=== PATIENT | male | born 1975 | race Caucasian/White ===

== ENCOUNTER → 2020-07-04 | Outpatient (CLI) | payer MEDICAID, MEDICARE ==
[~2020-07-04] MED LIST: CYCL10TA45 GT; HYDR-2890 PO; HYDR-34 PO; VNL75T PO
--- NOTE | 2020-07-04 12:58 | Diagnostic Imaging Report ---
EXAMINATION: CT Chest without contrast. TECHNIQUE: Multiple contiguous axial images were obtained through the chest without the use of intravenous contrast. All CT scans use one or more of the following dose optimizing techniques: automated exposure control, MA and/or KvP adjustment based on a patient size and exam type, or iterative reconstruction. HISTORY: Lung nodule. COMPARISON: None available. FINDINGS: There is no edema or pneumonia. No pleural effusion. No pneumothorax. There is a 4 mm triangular right upper lobe nodule likely representing a lymph node. There is no axillary or supraclavicular lymphadenopathy. There is no mediastinal lymphadenopathy. Heart size is normal. There are no coronary artery calcifications. No pericardial effusion. Aorta is normal in caliber. Limited views of the upper abdomen are unremarkable. There are no suspicious osseous lesions. IMPRESSION: 1. Right upper lobe 4 mm triangular nodule likely representing a lymph node. According to the Fleischner Society guidelines: In a low risk patient, no routine follow up is recommended. In a high risk patient, consider optional CT at 12 months. Dictated by: Dictated on workstation # [id number]
== END ==
LOC: RAD FS 12:33
PROVIDERS: ATTEND Nurse Practitioner
DX: R91.1 Solitary pulmonary nodule (principal)
CPT/HCPCS: 71250

== ENCOUNTER → 2022-08-30 | Outpatient (CLI) | payer MEDICARE ==
[~2022-08-30] MED LIST changes: +CATHETER FLUSH 10 ML SYR IV PRN; +HOLD METFORMIN - RECEIVED CONTRAST 20 ML VIAL IV SCH; +IOHEXOL 350 MG/ML 100 ML (OMNIPAQUE 350) VIAL IV ONE; +NS 100 ML (IVPB) BAG IV ONE
--- NOTE | 2022-08-30 18:58 | Diagnostic Imaging Report ---
CT CHEST W TECHNIQUE: Multiple contiguous axial images were obtained through the chest with the use of intravenous contrast. All CT scans use one or more of the following dose optimizing techniques: automated exposure control, MA and/or KvP adjustment based on a patient size and exam type, or iterative reconstruction. INDICATION: Pulmonary nodule COMPARISON: 07/04/2020 FINDINGS: Lungs and airway: No abnormality of the trachea. Stable 4 mm right upper lobe triangular nodule (image 46, series 5). No new or suspicious pulmonary nodules. There is no pneumonia or edema. Pleura: No pleural effusion or pneumothorax. Heart and mediastinum: No subclavicular or axillary lymphadenopathy. No mediastinal or hilar lymphadenopathy. Heart is normal in size without pericardial effusion. Normal caliber thoracic aorta. Upper abdomen: Diffuse hypoattenuation of the liver suggests hepatic steatosis. Musculoskeletal: No worrisome focal osseous lesions. IMPRESSION: 1. No suspicious pulmonary nodules that would require follow-up imaging or biopsy. 2. Stable 4 mm right upper lobe pulmonary nodule which is benign in nature. Dictated by: Dictated on workstation # [id number]
== END ==
LOC: RAD FS 15:35
PROVIDERS: ATTEND Nurse Practitioner
DX: R91.1 Solitary pulmonary nodule (principal)
CPT/HCPCS: 71260; Q9967